=== PATIENT | female | born 1985 | race Caucasian/White ===

== ENCOUNTER 2024-03-25 16:12 | Inpatient (IN) | payer OTHER ==
--- NOTE | 2024-03-25 16:47 | ED ---
General Adult HPI - General Source: patient, RN notes reviewed Mode of arrival: EMS Limitations: no limitations <Alvaro Valdez - Last Filed: 03/25/24 16:45> - General Source: patient, RN notes reviewed Mode of arrival: EMS Limitations: no limitations - History of Present Illness -: unknown Consistency: constant Improves with: none Worsens with: none Associated Symptoms: denies other symptoms Treatments Prior to Arrival: none <Mj Judd - Last Filed: 04/01/24 20:22> - General Stated complaint: Hypertension Time Seen by Provider: 03/25/24 16:45 - History of Present Illness Initial comments: Quick note: 38-year-old female presenting to the ER with a chief complaint hypertension. Patient is coming from [place]. She is checking in as she has been using cradle multiple times a day for the last 8 years. Last dose around 9 AM. She also reports she started to have a heavy chest sensation upon arriving to [place]. No shortness of breath, nausea, vomiting, dizziness or lightheadedness. No other drug or alcohol use. She does report a history of hypertension and is not taking any current medications. (Alvaro Valdez) This is a 38-year-old female to ER for severe anxiety and severely elevated blood pressure (Mj Judd) - Related Data Previous Rx's Medication Instructions Recorded NIFEdipine XL [Procardia XL] 90 mg PO HS #60 tab 03/27/24 carvediloL [Coreg] 6.25 mg PO BID-W/MEALS #120 tab 03/27/24 hydrALAZINE HCL [Apresoline] 50 mg PO QID #100 tab 03/27/24 hydroCHLOROthiazide [Hydrodiuril] 50 mg PO DAILY #60 tab 03/27/24 Allergies Allergy/AdvReac Type Severity Reaction Status Date / Time Penicillins AdvReac Rash/Hives Verified 03/25/24 18:03 Review of Systems ROS Other: All systems not noted in ROS Statement are negative. <Alvaro Valdez - Last Filed: 03/25/24 16:45> ROS Other: All systems not noted in ROS Statement are negative. <Mj Judd - Last Filed: 04/01/24 20:22> ROS Statement: Those systems with pertinent positive or pertinent negative responses have been documented in the HPI. General Exam <Alvaro Valdez - Last Filed: 03/25/24 16:45> General appearance: anxious Head exam: Present: atraumatic, normocephalic, normal inspection Eye exam: Present: normal appearance, PERRL, EOMI. Absent: scleral icterus, conjunctival injection, periorbital swelling ENT exam: Present: normal exam, mucous membranes moist Neck exam: Present: normal inspection. Absent: tenderness, meningismus, lymphadenopathy Respiratory exam: Present: normal lung sounds bilaterally. Absent: respiratory distress, wheezes, rales, rhonchi, stridor Cardiovascular Exam: Present: regular rate, normal rhythm, normal heart sounds. Absent: systolic murmur, diastolic murmur, rubs, gallop, clicks GI/Abdominal exam: Present: soft, normal bowel sounds. Absent: distended, tenderness, guarding, rebound, rigid Extremities exam: Present: normal inspection, full ROM, normal capillary refill. Absent: tenderness, pedal edema, joint swelling, calf tenderness Back exam: Present: normal inspection Neurological exam: Present: alert, oriented X3, CN II-XII intact Psychiatric exam: Present: normal affect, normal mood Skin exam: Present: warm, dry, intact, normal color. Absent: rash <Mj Judd - Last Filed: 04/01/24 20:22> - General Exam Comments Initial Comments: Visual Physical Exam Vital signs reviewed General: Well-appearing, nontoxic, no acute distress. Head: Normocephalic, atraumatic Eyes: PERRLA, EOMI ENT: Airway patent Chest: Nonlabored breathing Skin: No visual rash, normal skin tone Neuro: Alert and oriented 3 Musculoskeletal: No gross abnormalities (Alvaro Valdez) Course <Mj Judd - Last Filed: 04/01/24 20:22> Vital Signs 03/25/24 03/25/24 03/25/24 16:43 18:01 18:31 Temperature 98.7 F Pulse Rate 96 78 76 Pulse Rate [ Veterinary Toxicologist ] Respiratory 20 18 Rate Blood Pressure 239/155 196/116 202/128 Blood Pressure [Right Arm] O2 Sat by Pulse 99 97 98 Oximetry 03/25/24 03/25/24 03/25/24 19:41 20:23 20:41 Temperature 97.7 F Pulse Rate 78 85 84 Pulse Rate [ Veterinary Toxicologist ] Respiratory 20 Rate Blood Pressure 217/142 203/129 204/144 Blood Pressure [Right Arm] O2 Sat by Pulse 98 Oximetry 03/25/24 03/25/24 03/25/24 21:03 21:09 21:17 Temperature 98.1 F Pulse Rate 93 95 Pulse Rate [ Veterinary Toxicologist ] Respiratory 16 16 Rate Blood Pressure 176/94 153/85 146/98 Blood Pressure [Right Arm] O2 Sat by Pulse 96 98 Oximetry 03/25/24 03/25/24 03/25/24 21:26 21:29 21:34 Temperature Pulse Rate 89 89 86 Pulse Rate [ Veterinary Toxicologist ] Respiratory 16 16 16 Rate Blood Pressure 162/95 164/98 172/94 Blood Pressure [Right Arm] O2 Sat by Pulse 96 97 Oximetry 03/25/24 03/25/24 03/25/24 21:56 22:33 22:41 Temperature Pulse Rate 89 78 73 Pulse Rate [ Veterinary Toxicologist ] Respiratory 20 18 16 Rate Blood Pressure 195/120 176/116 166/105 Blood Pressure [Right Arm] O2 Sat by Pulse 97 96 98 Oximetry 03/25/24 03/26/24 03/26/24 23:09 00:10 01:08 Temperature Pulse Rate 71 88 77 Pulse Rate [ Veterinary Toxicologist ] Respiratory 18 20 20 Rate Blood Pressure 163/99 171/116 183/121 Blood Pressure [Right Arm] O2 Sat by Pulse 97 97 100 Oximetry 03/26/24 03/26/24 03/26/24 02:04 02:24 04:00 Temperature Pulse Rate 84 81 94 Pulse Rate [ Veterinary Toxicologist ] Respiratory 22 20 18 Rate Blood Pressure 218/133 181/108 144/102 Blood Pressure [Right Arm] O2 Sat by Pulse 100 94 L 97 Oximetry 03/26/24 03/26/24 03/26/24 04:19 04:54 05:09 Temperature Pulse Rate 83 91 90 Pulse Rate [ Veterinary Toxicologist ] Respiratory 20 18 20 Rate Blood Pressure 143/110 137/96 155/106 Blood Pressure [Right Arm] O2 Sat by Pulse 98 99 99 Oximetry 03/26/24 03/26/24 06:09 06:10 Temperature 98 F Pulse Rate 93 Pulse Rate [ 74 Veterinary Toxicologist ] Respiratory 20 17 Rate Blood Pressure 140/93 140/93 Blood Pressure 140/93 [Right Arm] O2 Sat by Pulse 99 100 Oximetry - Reevaluation(s) Reevaluation #1: 03/25/24 17:14 Medical records reviewed (Mj Judd) Reevaluation #2: Patient still with symptoms here in the ER (Mj Judd) Reevaluation #3: Patient informed of results and questions answered (Mj Judd) Reevaluation #4: Was pt. sent in by a medical professional or institution ([facility], OTHER [employer], urgent care, hospital, or chcf...) When possible be specific @ -no Did you speak to anyone other than the patient for history (EMS, parent, family, police, friend...)? What history was obtained from this source @ -no Did you review nursing and triage notes (agree or disagree)? Why? @ -agree Are old charts reviewed (outside hosp., previous admission, EMS record, old EKG, old radiological studies, urgent care reports/EKG's, [facility] records)? Report findings @ -yes Differential Diagnosis (chest pain, altered mental status, abdominal pain women, abdominal pain men, vaginal bleeding, weakness, fever, dyspnea, syncope, headache, dizziness, GI bleed, back pain, seizure, CVA, palpatations, mental health, musculoskeletal)? @ -prior EKG interpreted by me (3pts min.). @ -yes X-rays interpreted by me (1pt min.). @ -yes negative for acute disease CT interpreted by me (1pt min.). @ -no U/S interpreted by me (1pt. min.). @ -no What testing was considered but not performed or refused? (CT, X-rays, U/S, labs)? Why? @ -none What meds were considered but not given or refused? Why? @ -none Did you discuss the management of the patient with other professionals (professionals i.e. [facility] Martinez, [employer], lab, RT, psych nurse, social work supervisor, policy change clerks supervisor, teacher, parachute/combatant diver officer, case managers)? Give summary @ -no Was smoking cessation discussed for >3mins.? @ -no Was critical care preformed (if so, how long)? @ -yes31 Were there social determinants of health that impacted care today? How? (Homelessness, low income, unemployed, alcoholism, drug addiction, transportation, low edu. Level, literacy, decrease access to med. care, snf, rehab)? @ -none Was there de-escalation of care discussed even if they declined (Discuss DNR or withdrawal of care, Hospice)? DNR status @ -no What co-morbidities impacted this encounter? (DM, HTN, Smoking, COPD, CAD, Cancer, CVA, ARF, Chemo, Hep., AIDS, mental health diagnosis, sleep apnea, morbid obesity)? @ -none Was patient admitted / discharged? Hospital course, mention meds given and route, prescriptions, significant lab abnormalities, going to OR and other pertinent info. @ - 38 female to the ER for evaluation patient will be admitted for severely uncontrolled blood pressure hypertensive emergency with chest pain chest pain anxiety and troponin leak Admitted Undiagnosed new problem with uncertain prognosis? @ -no Drug Therapy requiring intensive monitoring for toxicity (Heparin, Nitro, Insulin, Cardizem)? @ -no Were any procedures done? @ -no Diagnosis/symptom? @ -Hypertensive urgency and chest pain Acute, or Chronic, or Acute on Chronic? @ -Acute Uncomplicated (without systemic symptoms) or Complicated (systemic symptoms)? @ -Complicated Side effects of treatment? @ -no Exacerbation, Progression, or Severe Exacerbation? @ -exacerbation Poses a threat to life or bodily function? How? (Chest pain, [place], [place], pneumonia, PE, COPD, DKA, ARF, appy, cholecystitis, CVA, Diverticulitis, Homicidal, Suicidal, threat to staff... and all critical care pts) @ -yes with chest pain (Mj Judd) Reevaluation #5: Differential Chest Pain: Stable Angina, Unstable Angina, STEMI, NSTEMI Aortic Dissection, Pneumothorax, Musculoskeletal, Esophageal Spasm GERD, Cholecystitis, Pancreatitis, Zoster, this is not meant to be an all-inclusive list. (Mj Judd) - Consultations Consultation #1: Spoke with many physicians who agreed to admit this patient (Mj Judd) EKG Findings - EKG Comments: EKG Findings:: EKG is sinus 85 TX 190 QRS 116 QTc 457 <Mj Judd - Last Filed: 04/01/24 20:22> Medical Decision Making <Alvaro Valdez - Last Filed: 03/25/24 16:45> - Lab Data Result diagrams: 03/27/24 10:03 03/27/24 10:03 - EKG Data -: EKG Interpreted by Me - Radiology Data Radiology results: report reviewed (Chest x-ray is negative for acute disease), image reviewed <Mj Judd - Last Filed: 04/01/24 20:22> - Medical Decision Making I performed the quick note portion of this chart. Electronically signed by Alvaro Valdez PA-C (Alvaro Valdez) 38 female to the ER for evaluation patient will be admitted for severely uncontrolled blood pressure hypertensive emergency with chest pain chest pain anxiety and troponin leak (Mj Judd) - Lab Data Lab Results 03/25/24 03/25/24 03/25/24 Range/Units 17:00 17:00 17:00 WBC 7.7 (3.8-10.6) k/uL RBC 4.62 (3.80-5.40) m/uL Hgb 12.0 (11.4-16.0) gm/dL Hct 37.5 (34.0-46.0) % MCV 81.1 (80.0-100.0) fL MCH 26.1 (25.0-35.0) pg MCHC 32.1 (31.0-37.0) g/dL RDW 17.3 H (11.5-15.5) % Plt Count 335 (150-450) k/uL MPV 8.0 Neutrophils % 61 % Lymphocytes % 32 % Monocytes % 4 % Eosinophils % 1 % Basophils % 0 % Neutrophils # 4.7 (1.3-7.7) k/uL Lymphocytes # 2.5 (1.0-4.8) k/uL Monocytes # 0.3 (0-1.0) k/uL Eosinophils # 0.1 (0-0.7) k/uL Basophils # 0.0 (0-0.2) k/uL Anisocytosis Slight PT 10.5 (10.0-12.5) sec INR 0.9 (<1.2) APTT 23.1 (22.0-30.0) sec Sodium 135 L (137-145) mmol/L Potassium 3.7 (3.5-5.1) mmol/L Chloride 100 (98-107) mmol/L Carbon Dioxide 27 (22-30) mmol/L Anion Gap 8 mmol/L BUN 24 H (7-17) mg/dL Creatinine 0.82 (0.52-1.04) mg/dL Est GFR (CKD-EPI)AfAm >90 (>60 ml/min/1.73 sqM) Est GFR (CKD-EPI)NonAf >90 (>60 ml/min/1.73 sqM) Glucose 94 (74-99) mg/dL Calcium 8.6 (8.4-10.2) mg/dL Magnesium 1.6 (1.6-2.3) mg/dL Total Bilirubin 0.4 (0.2-1.3) mg/dL AST 26 (14-36) U/L ALT 17 (4-34) U/L Alkaline Phosphatase 89 (38-126) U/L Troponin I (0.000-0.034) ng/mL Total Protein 7.0 (6.3-8.2) g/dL Albumin 4.2 (3.5-5.0) g/dL 03/25/24 Range/Units 17:00 WBC (3.8-10.6) k/uL RBC (3.80-5.40) m/uL Hgb (11.4-16.0) gm/dL Hct (34.0-46.0) % MCV (80.0-100.0) fL MCH (25.0-35.0) pg MCHC (31.0-37.0) g/dL RDW (11.5-15.5) % Plt Count (150-450) k/uL MPV Neutrophils % % Lymphocytes % % Monocytes % % Eosinophils % % Basophils % % Neutrophils # (1.3-7.7) k/uL Lymphocytes # (1.0-4.8) k/uL Monocytes # (0-1.0) k/uL Eosinophils # (0-0.7) k/uL Basophils # (0-0.2) k/uL Anisocytosis PT (10.0-12.5) sec INR (<1.2) APTT (22.0-30.0) sec Sodium (137-145) mmol/L Potassium (3.5-5.1) mmol/L Chloride (98-107) mmol/L Carbon Dioxide (22-30) mmol/L Anion Gap mmol/L BUN (7-17) mg/dL Creatinine (0.52-1.04) mg/dL Est GFR (CKD-EPI)AfAm (>60 ml/min/1.73 sqM) Est GFR (CKD-EPI)NonAf (>60 ml/min/1.73 sqM) Glucose (74-99) mg/dL Calcium (8.4-10.2) mg/dL Magnesium (1.6-2.3) mg/dL Total Bilirubin (0.2-1.3) mg/dL AST (14-36) U/L ALT (4-34) U/L Alkaline Phosphatase (38-126) U/L Troponin I 0.017 (0.000-0.034) ng/mL Total Protein (6.3-8.2) g/dL Albumin (3.5-5.0) g/dL Disposition <Alvaro Valdez - Last Filed: 03/25/24 16:45> Is patient prescribed a controlled substance at d/c from ED?: No Time of Disposition: 19:20 <Mj Judd - Last Filed: 04/01/24 20:22> Clinical Impression: Hypertensive emergency, Chest pain, Anxiety Disposition: ADMITTED IP TO THIS HOSP Condition: Stable
[2024-03-25] MEDS: LABETALOL 5 MG/ML VIAL MDV IVP STA ×2 (17:08→21:25)
[2024-03-25 17:20] LABS: Anisocytosis Slight; Basophils % (A) 0 %; Eosinophils # (A) 0.1 k/uL (0-0.7); Eosinophils % (A) 1 %; HCT 37.5 % (34.0-46.0); Lymphocytes # (A) 2.5 k/uL (1.0-4.8); Lymphocytes % (A) 32 %; MCH 26.1 pg (25.0-35.0); MCHC 32.1 g/dL (31.0-37.0); MCV 81.1 fL (80.0-100.0); Monocytes # (A) 0.3 k/uL (0-1.0); Monocytes % (A) 4 %; Neutrophils # (A) 4.7 k/uL (1.3-7.7); Neutrophils % (A) 61 %; Platelet Count 335 k/uL (150-450); RBC 4.62 m/uL (3.80-5.40); RDW 17.3 % (11.5-15.5); WBC 7.7 k/uL (3.8-10.6)
[2024-03-25 17:28] LABS: INR 0.9 (<1.2); Partial Thromboplastin Time 23.1 sec (22.0-30.0); Prothrombin Time 10.5 sec (10.0-12.5)
[2024-03-25 17:34] LABS: ALT 17 U/L (4-34); AST 26 U/L (14-36); African American GFR (CKD) >90 (>60 ml/min/1.73 sqM); Albumin 4.2 g/dL (3.5-5.0); Alkaline Phosphatase 89 U/L (38-126); Anion Gap 8 mmol/L; Blood Urea Nitrogen 24 mg/dL (7-17); Calcium 8.6 mg/dL (8.4-10.2); Carbon Dioxide 27 mmol/L (22-30); Chloride 100 mmol/L (98-107); Glucose 94 mg/dL (74-99); Magnesium 1.6 mg/dL (1.6-2.3); Non-African American GFR(CKD) >90 (>60 ml/min/1.73 sqM); Potassium 3.7 mmol/L (3.5-5.1); Sodium 135 mmol/L (137-145); Total Bilirubin 0.4 mg/dL (0.2-1.3)
--- NOTE | 2024-03-25 17:42 | XR ---
EXAMINATION TYPE: XR chest 2V DATE OF EXAM: 03/25/2024 5:23 PM CLINICAL INDICATION: Female, 38 years old with history of Chest Pain; [facility] COMPARISON: Chest radiographs from 03/25/2024 TECHNIQUE: XR chest 2V Frontal view of the chest. FINDINGS: Lungs/Pleura: There is no evidence of pleural effusion, focal consolidation, or pneumothorax. Pulmonary vascularity: Unremarkable. Heart/mediastinum: Cardiomediastinal silhouette is unremarkable. Musculoskeletal: No acute osseous pathology. IMPRESSION: No acute cardiopulmonary disease/process. [facility] Kamla Gilliam, , 03/25/2024 5:40 PM
[2024-03-25] MEDS: LORazepam 2 MG/ML INJ IV STA ×2 (18:00→22:51)
[2024-03-25] MEDS: cloNIDine 0.3 MG/24HR PATCH TRANSDERM SCH (18:01)
[2024-03-25] MEDS ORDERED: NALOXONE 0.4 MG/ML 1 ML VIAL IV PRN (19:14)
[2024-03-25] MEDS ORDERED: ONDANSETRON 4 MG/2 ML VIAL IVP PRN (19:14)
[2024-03-25] MEDS ORDERED: MORPHINE SULFATE 4 MG/ML SYRINGE IV PRN (19:14)
[2024-03-25] MEDS: SODIUM CHLORIDE 0.9% 1,000 ML IV SCH (19:25)
[2024-03-25 19:54] LABS: Amphetamine Screen,Urine Not Detected (NotDetected); Barbiturate Screen,Urine Not Detected (NotDetected); Benzodiazepines Screen,Urine Detected (NotDetected); Cocaine Screen,Urine Not Detected (NotDetected); Methadone Screen, Urine Not Detected (NotDetected); Opiate Screen,Urine Not Detected (NotDetected); Oxycodone Screen, Urine Not Detected (NotDetected); Phencyclidine Screen,Urine Not Detected (NotDetected); Tricyclic Antidepressant,Urine Not Detected (NotDetected); Urn Cannabinoid Scrn Detected (NotDetected)
[2024-03-25] MEDS: niCARdipine 20 MG in SODIUM CHLORIDE 0.9% 192 ML IV SCH (20:06)
--- NOTE | 2024-03-25 22:02 | P.HPIM ---
History of Present Illness H&P Date: 03/25/24 History of present illness; Bruna Escalante 38-year-old female with hypertension and substance use presents for hypertensive emergency. She states that she was seen at [place] and was found to have hypertension greater than 160 systolic per patient. She also stated to have heavy chest sensation when arriving at [place]. She states she has used kratom multiple times a day for the last 8 years, last use being this morning at 9 AM. Her only stated current complaint is itchiness throughout her body. Patient reports absence of fever, chills, chest pain, palpitations, diaphoresis, dyspnea, cough, nausea, vomiting, diarrhea, abdominal pain, weakness, myalgia, dizziness, headache, vision changes, and dysuria. Initial lab work done in the ER showed WBC 7.7, hemoglobin 12.0, platelets 335, coag studies are WNL, sodium 135, potassium 3.7, bicarb 27, anion gap 8, BUN 24, creatinine 0.82, glucose 94, troponin 0.016, urine toxicology positive for benzodiazepine and marijuana. EKG done in the ER independently interpreted showed heart rate of 85, with ST- elevated in aVR and depression in leads I, II, V5, and V6. Chest x-ray done independently interpreted in the ER showed no acute cardiopulmonary process Patient admitted to internal medicine service for hypertensive emergency. REVIEW OF SYSTEMS: All Systems reviewed, pertinent positives and negatives noted in HPI. All other symptoms are negative. PHYSICAL EXAMINATION: Vitals reviewed GENERAL: Appears somewhat uncomfortable, Well developed, well nourished. HEENT: Pupils are round and equally reacting to light. EOMI. No scleral icterus. No conjunctival pallor. Normocephalic, atraumatic. No pharyngeal erythema. No thyromegaly. CARDIOVASCULAR: S1 and S2 present. No murmurs, rubs, or gallops. PULMONARY: Chest is clear to auscultation, no wheezing or crackles. ABDOMEN: Soft, nontender, nondistended, normoactive bowel sounds. No palpable organomegaly. MUSCULOSKELETAL: No apparent joint swelling and deformities. EXTREMITIES: No apparent cyanosis, clubbing, or pedal edema. NEUROLOGICAL: Gross neurological examination did not reveal any focal deficits. SKIN: No apparent rashes PSYCH: The patient is alert and oriented x3 Labs reviewed Imaging reviewed Assessment and plan Bruna Escalante 38-year-old female with hypertension and substance use presents for hypertensive emergency. # Hypertensive emergency Initial BP 239/155 Given 40 mg labetalol in ER Continue clonidine 0.3 mg patch Continue IV nicardipine 5 mg/h Continue IV NS 75 mL/h Continue ondansetron 4 mg IV push every 8 hour as needed for nausea and vomiting Continue cardiac monitoring N.p.o. for now Monitor BMP, every 6 hours # Abnormal EKG with mild troponin leak - Likely due to ongoing hypertensive emergency - Cardiac monitoring - Cardiology consulted - Patient currently denying chest pain # Substance abuse - Given Ativan 1 mg once - Monitor for withdrawal symptoms F: IV Normal saline 75 cc/hr E: Replete as needed N: N.p.o. E: None DVT ppx: Subq Lovenox Code status: Full code Anticipated discharge place: [place] Anticipated discharge time: 03/27 Monitor vital signs, CBC, BMP Continue telemetry monitoring Continue with symptomatic treatment. Further recommendations as per clinical course of the patient Dictation was produced using [employer] dictation software. Please excuse any grammatical, word or spelling errors. Past Medical History Past Medical History: Hypertension History of Any Multi-Drug Resistant Organisms: None Reported Past Surgical History: Section Additional Past Surgical History / Comment(s): brest reduction Past Psychological History: No Psychological Hx Reported Smoking Status: Current every day smoker, Vaper Past Alcohol Use History: Occasional Past Drug Use History: None Reported Medications and Allergies Home Medications Medication Instructions Recorded Confirmed Type No Known Home Medications 03/25/24 03/25/24 History Allergies Allergy/AdvReac Type Severity Reaction Status Date / Time Penicillins AdvReac Rash/Hives Verified 03/25/24 18:03 Physical Exam Vitals: Vital Signs Temp Pulse Resp BP Pulse Ox 03/25/24 21:34 86 16 172/94 97 03/25/24 21:29 89 16 164/98 03/25/24 21:26 89 16 162/95 96 03/25/24 21:17 95 16 146/98 98 03/25/24 21:09 153/85 03/25/24 21:03 98.1 F 93 16 176/94 96 03/25/24 20:41 84 204/144 03/25/24 20:23 85 203/129 03/25/24 19:41 97.7 F 78 20 217/142 98 03/25/24 18:31 76 18 202/128 98 03/25/24 18:01 78 196/116 97 03/25/24 16:43 98.7 F 96 20 239/155 99 Intake and Output 03/25/24 03/25/24 03/25/24 06:59 14:59 22:59 Intake Total 87.500 Balance 87.500 Intake: Intake, IV Titration 87.500 Amount niCARdipine 20 mg In 87.500 Sodium Chloride 0.9% 192 ml @ 5 MG/HR 50 mls/hr IV .Q4H [facility] Rx#:[id number] Other: Weight 53.524 kg Results CBC & Chem 7: 03/25/24 17:00 03/25/24 17:00 Labs: Abnormal Lab Results - Last 24 Hours (Table) 03/25/24 03/25/24 03/25/24 Range/Units 17:00 17:00 19:21 RDW 17.3 H (11.5-15.5) % Sodium 135 L (137-145) mmol/L BUN 24 H (7-17) mg/dL U Benzodiazepines Scrn Detected H (NotDetected) U Marijuana (THC) Screen Detected H (NotDetected)
[2024-03-25] MEDS: diphenhydrAMINE 50 MG/ML 1 ML VIAL IVP STA (22:51)
[2024-03-26 00:11] LABS: African American GFR (CKD) >90 (>60 ml/min/1.73 sqM); Anion Gap 3 mmol/L; Blood Urea Nitrogen 19 mg/dL (7-17); Calcium 8.4 mg/dL (8.4-10.2); Carbon Dioxide 30 mmol/L (22-30); Chloride 102 mmol/L (98-107); Glucose 84 mg/dL (74-99); Non-African American GFR(CKD) >90 (>60 ml/min/1.73 sqM); Potassium 3.4 mmol/L (3.5-5.1); Sodium 135 mmol/L (137-145)
[2024-03-26] MEDS: LORazepam 2 MG/ML INJ IV STA (03:16)
[2024-03-26] MEDS: POTASSIUM CHLORIDE ER 20 MEQ TAB.ER PO STA (03:26)
[2024-03-26] MEDS: hydroCHLOROthiazide 25 MG TAB PO SCH (03:26)
[2024-03-26] MEDS: amLODIPine 10 MG TAB PO STA (03:26)
[2024-03-26 06:06] LABS: Glucose,Whole Blood 126 mg/dL (70-110)
--- NOTE | 2024-03-26 06:13 | P.CNPUL ---
History of Present Illness Consult date: 03/26/24 Requesting physician: Kelli Fajardo Reason for consult: other (Hypertensive urgency) Chief complaint: High blood pressure at [facility] History of present illness: Patient is a 38-year-old female sent in from [facility] re[facility] facility for high blood pressure. Patient apparently uses Kratom multiple times per day for the last 8 years. Originally, started taking the substance to get off pain pills. Her last dose was reportedly yesterday around 0900. Currently, she is a poor historian. Does not offer much reliable information for HPI, but will occasionally respond appropriately to direct questioning. I did speak to Dr. Fajardo in regard to this patient. She was found to be severely hypertensive in the emergency department, initial blood pressure 239/155 mmHg. Reportedly complaining of chest pain on arrival. Patient was given multiple doses of labetalol, as well as, started on oral antihypertensive medications (e.g., amlodipine, hydrochlorothiazide, and clonidine patch). Despite this, requiring IV antihypertensives. I am currently evaluating the patient in the emergency department. She is currently on Cardene infusion at 3 mg/hr. She is diaphoretic, restless, and itching all over. Also, becomes agitated with repeat questioning. She has received multiple doses of Ativan, total of 5 mg. Patient denies any headaches, vision changes, seizures. Also, denies chest pain, shortness of breath, palpitations, peripheral edema. Denies any other drug use; however, urine toxicology screen positive for benzodiazepines and marijuana. States she drinks alcohol on average 2 times per week, but not daily. Denies history of high blood pressure or prescribed antihypertensive medications on an outpatient basis. Current vital signs include a heart rate of 94 bpm, blood pressure 137/96 mmHg, tachypneic, on room air, SpO2 98%, afebrile. CBC and BMP unremarkable. LFTs unremarkable. Serial troponin 0.017, 0.018, and 0.026 respectively. EKG: Normal sinus rhythm, rate 85 bpm, T wave inversion in leads I, aVL, V5, V6 along with minimal ST depressions. Awaiting bed on the intensive care unit. Review of Systems Constitutional: Denies fever Cardiovascular: Denies chest pain, Denies leg edema, Denies palpitations, Denies shortness of breath Respiratory: Denies dyspnea Gastrointestinal: Denies abdominal pain, Denies diarrhea, Denies nausea, Denies vomiting Genitourinary: Denies dysuria Musculoskeletal: Denies limitation of motion Integumentary: Denies rash Neurological: Reports confusion, Reports tremors, Denies headaches, Denies seizures, Denies visual changes Psychiatric: Reports anxiety, Reports irritability, Denies hallucinations Past Medical History Past Medical History: Hypertension History of Any Multi-Drug Resistant Organisms: None Reported Past Surgical History: Section Additional Past Surgical History / Comment(s): brest reduction Past Psychological History: No Psychological Hx Reported Smoking Status: Current every day smoker, Vaper Past Alcohol Use History: Occasional Past Drug Use History: None Reported Medications and Allergies Home Medications Medication Instructions Recorded Confirmed Type No Known Home Medications 03/25/24 03/25/24 History Allergies Allergy/AdvReac Type Severity Reaction Status Date / Time Penicillins AdvReac Rash/Hives Verified 03/25/24 18:03 Physical Exam Vitals: Vital Signs Temp Pulse Resp BP Pulse Ox 03/26/24 05:09 90 20 155/106 99 03/26/24 04:54 91 18 137/96 99 03/26/24 04:19 83 20 143/110 98 03/26/24 04:00 94 18 144/102 97 03/26/24 02:24 81 20 181/108 94 L 03/26/24 02:04 84 22 218/133 100 03/26/24 01:08 77 20 183/121 100 03/26/24 00:10 88 20 171/116 97 03/25/24 23:09 71 18 163/99 97 03/25/24 22:41 73 16 166/105 98 03/25/24 22:33 78 18 176/116 96 03/25/24 21:56 89 20 195/120 97 03/25/24 21:34 86 16 172/94 97 03/25/24 21:29 89 16 164/98 03/25/24 21:26 89 16 162/95 96 03/25/24 21:17 95 16 146/98 98 03/25/24 21:09 153/85 03/25/24 21:03 98.1 F 93 16 176/94 96 03/25/24 20:41 84 204/144 03/25/24 20:23 85 203/129 03/25/24 19:41 97.7 F 78 20 217/142 98 03/25/24 18:31 76 18 202/128 98 03/25/24 18:01 78 196/116 97 03/25/24 16:43 98.7 F 96 20 239/155 99 Intake and Output 03/25/24 03/25/24 03/26/24 14:59 22:59 06:59 Intake Total 89.167 70 Balance 89.167 70 Intake: Intake, IV Titration 89.167 70 Amount niCARdipine 20 mg In 89.167 70 Sodium Chloride 0.9% 192 ml @ 5 MG/HR 50 mls/hr IV .Q4H [facility] Rx#:[id number] Other: Weight 53.524 kg GENERAL EXAM: Restless, 38-year-old female, intermittently agitated. Trying to get up to the bathroom. HEAD: Normocephalic and atraumatic EYES: Normal reaction of pupils, equal size. NOSE: Clear with pink turbinates. THROAT: No erythema or exudates. NECK: No masses, no JVD. CHEST: No chest wall deformity. LUNGS: Equal air entry with no crackles, wheeze, rhonchi or dullness. On room air. No conversational dyspnea or accessory muscle use.. CVS: S1 and S2 normal with no audible murmur, regular rhythm. No extra heart sounds ABDOMEN: No hepatosplenomegaly, active bowel sounds, no guarding or rigidity. SPINE: No scoliosis or deformity SKIN: No rashes CENTRAL NERVOUS SYSTEM: Currently oriented to self only. No focal deficits, tone is normal in all 4 extremities. EXTREMITIES: There is no peripheral edema, clubbing, or cyanosis. Peripheral pulses are intact. Results - Laboratory Findings CBC and BMP: 03/25/24 17:00 03/25/24 23:28 PT/INR, D-dimer PT 10.5 sec (10.0-12.5) 03/25/24 17:00 INR 0.9 (<1.2) 03/25/24 17:00 Abnormal lab findings: Abnormal Labs 03/25/24 03/25/24 03/25/24 17:00 17:00 19:21 RDW 17.3 H Sodium 135 L Potassium BUN 24 H U Benzodiazepines Scrn Detected H U Marijuana (THC) Screen Detected H 03/25/24 23:28 RDW Sodium 135 L Potassium 3.4 L BUN 19 H U Benzodiazepines Scrn U Marijuana (THC) Screen - Diagnostic Findings Chest x-ray: image reviewed Assessment and Plan Assessment: Hypertensive urgency, currently on Cardene infusion. Altered mental status, likely secondary to withdrawal symptoms or possibly hypertensive encephalopathy Polysubstance abuse, admits to using kratom multiple times per day; urine toxicology screen positive for marijuana and benzodiazepines. Plan: Patient's medications, labs, chest x-ray reviewed Continue IV Cardene for now; if continued difficulty in blood pressure management, consider switching to Cleviprex infusion Adjunct oral antihypertensives already started Gradual reductions toward a normal BP can be implemented over the next 24 to 48 hours Obtain repeat ECG As needed Ativan ordered for suspected withdrawal symptoms GI prophylaxis: Protonix DVT prophylaxis: Lovenox Cardiology consulted Patient is going to be admitted to the intensive care unit once bed available I have personally seen and examined the patient, performed the documentation and the assessment and plan as written. Number of minutes spent on the visit:20 Time with Patient: Greater than 30
[2024-03-26] MEDS: CLEVIDIPINE BUTYRATE 25 MG in EMPTY BAG 1 BAG IV SCH (06:54)
[2024-03-26] MEDS: METOPROLOL TARTRATE 25 MG TAB PO SCH (09:34)
[2024-03-26] MEDS: ENOXAPARIN 40 MG/0.4 ML SYRINGE SQ SCH (09:36)
[2024-03-26] MEDS: PANTOPRAZOLE 40 MG TABLET PO SCH (09:36)
--- NOTE | 2024-03-26 09:45 | P.CRDCN ---
History of Present Illness Consult date: 03/26/24 Consult reason: hypertension History of present illness: The patient is a 38-year-old female who is currently in [place] for withdrawal. Patient was found to have elevated blood pressure readings greater than 160 systolic therefore she was sent to the emergency room. On arrival blood pressures were greater than 200 systolic. She admits to using kratom multiple times per day and denies any other drug use. Urine toxicology positive for benzodiazepines and marijuana. DIAGNOSTICS: EKG shows sinus mechanism with LVH Chest x-ray shows no acute cardiopulmonary process Lab data: WBC 7.7, hemoglobin 12.0, hematocrit 37.5, platelet 335, sodium 135, potassium 3.4, BUN 19, creatinine 0.79, magnesium 1.6, AST 26, ALT 17, troponins negative x 3, urine toxicology positive for benzodiazepines and marijuana REVIEW OF SYSTEMS: Limited review of systems. Patient is sleeping and refuses to answer to questioning. PHYSICAL EXAMINATION: This is a 30-year-old female in no apparent distress at the time of my examination. HEENT: Head is atraumatic, normocephalic. Pupils are equal, round. Mucous membranes of the mouth are moist. Neck is supple. There is no jugular venous distention. No carotid bruit is heard. CHEST EXAMINATION: Lungs are clear to auscultation. No chest wall tenderness is noted on palpation or with deep breathing. HEART EXAMINATION: Heart regular rate and rhythm. S1, S2 heard. No murmurs, gallops or rub. ABDOMEN: Soft, nontender. Bowel sounds are heard. No organomegaly noted. EXTREMITIES: 2+ peripheral pulses with no evidence of peripheral edema and no calf tenderness noted. NEUROLOGIC EXAMINATION: Patient is sleeping. FINAL ASSESSMENT AND PLAN: Hypertensive crisis Altered mental status Polysubstance abuse PLAN: Switch amlodipine to Procardia Wean Cleviprex drip as tolerated Further recommendations be based upon clinical course I am dictating on behalf of Dr Nael Rodrigez's history/physical and assessmen t/plan. Past Medical History Past Medical History: Hypertension History of Any Multi-Drug Resistant Organisms: None Reported Past Surgical History: Section Additional Past Surgical History / Comment(s): brest reduction Past Psychological History: No Psychological Hx Reported Smoking Status: Current every day smoker, Vaper Past Alcohol Use History: Occasional Past Drug Use History: None Reported Medications and Allergies Home Medications Medication Instructions Recorded Confirmed Type No Known Home Medications 03/25/24 03/25/24 History Allergies Allergy/AdvReac Type Severity Reaction Status Date / Time Penicillins AdvReac Rash/Hives Verified 03/25/24 18:03 Physical Exam Vitals: Vital Signs Temp Pulse Pulse Resp BP BP Pulse Ox 03/26/24 09:30 93 26 H 148/94 98 03/26/24 09:15 19 149/102 99 03/26/24 09:00 82 19 146/97 96 03/26/24 08:45 88 21 135/95 98 03/26/24 08:30 86 23 149/95 98 03/26/24 08:15 86 18 149/99 100 03/26/24 08:00 98.6 F 80 20 161/120 98 03/26/24 07:45 90 20 161/113 03/26/24 07:30 21 153/117 03/26/24 07:20 18 153/117 03/26/24 07:10 86 23 159/116 03/26/24 07:00 83 9 L 162/107 03/26/24 06:50 83 20 162/107 03/26/24 06:40 83 23 171/119 03/26/24 06:30 78 20 180/112 03/26/24 06:20 81 15 140/93 100 03/26/24 06:10 98 F 74 17 140/93 140/93 100 03/26/24 06:09 93 20 140/93 99 03/26/24 05:09 90 20 155/106 99 03/26/24 04:54 91 18 137/96 99 03/26/24 04:19 83 20 143/110 98 03/26/24 04:00 94 18 144/102 97 03/26/24 02:24 81 20 181/108 94 L 03/26/24 02:04 84 22 218/133 100 03/26/24 01:08 77 20 183/121 100 03/26/24 00:10 88 20 171/116 97 03/25/24 23:09 71 18 163/99 97 03/25/24 22:41 73 16 166/105 98 03/25/24 22:33 78 18 176/116 96 03/25/24 21:56 89 20 195/120 97 03/25/24 21:34 86 16 172/94 97 03/25/24 21:29 89 16 164/98 03/25/24 21:26 89 16 162/95 96 03/25/24 21:17 95 16 146/98 98 03/25/24 21:09 153/85 03/25/24 21:03 98.1 F 93 16 176/94 96 03/25/24 20:41 84 204/144 03/25/24 20:23 85 203/129 03/25/24 19:41 97.7 F 78 20 217/142 98 03/25/24 18:31 76 18 202/128 98 03/25/24 18:01 78 196/116 97 03/25/24 16:43 98.7 F 96 20 239/155 99 Intake and Output 03/25/24 03/26/24 03/26/24 22:59 06:59 14:59 Intake Total 89.167 70 152.3 Output Total 1200 Balance 89.167 70 -1047.7 Intake: IV 150 Sodium Chloride 0.9% 1, 150 000 ml @ 75 mls/hr IV . [id number] [facility] Rx#:[id number] Intake, IV Titration 89.167 70 2.3 Amount Clevidipine Butyrate 25 2.3 mg In Empty Bag 1 bag @ 1 MG/HR 2 mls/hr IV .Q24H [facility] Rx#:[id number] niCARdipine 20 mg In 89.167 70 Sodium Chloride 0.9% 192 ml @ 5 MG/HR 50 mls/hr IV .Q4H [facility] Rx#:[id number] Output: Urine 1200 Other: Weight 53.524 kg 53.524 kg Results 03/25/24 17:00 03/25/24 23:28 Cardiac Enzymes 03/25/24 03/25/24 03/25/24 Range/Units 17:00 17:00 20:43 AST 26 (14-36) U/L Troponin I 0.017 0.018 (0.000-0.034) ng/mL 03/25/24 Range/Units 23:28 AST (14-36) U/L Troponin I 0.026 (0.000-0.034) ng/mL Coagulation 03/25/24 Range/Units 17:00 PT 10.5 (10.0-12.5) sec APTT 23.1 (22.0-30.0) sec CBC 03/25/24 Range/Units 17:00 WBC 7.7 (3.8-10.6) k/uL RBC 4.62 (3.80-5.40) m/uL Hgb 12.0 (11.4-16.0) gm/dL Hct 37.5 (34.0-46.0) % Plt Count 335 (150-450) k/uL Comprehensive Metabolic Panel 03/25/24 03/25/24 Range/Units 17:00 23:28 Sodium 135 L 135 L (137-145) mmol/L Potassium 3.7 3.4 L (3.5-5.1) mmol/L Chloride 100 102 (98-107) mmol/L Carbon Dioxide 27 30 (22-30) mmol/L BUN 24 H 19 H (7-17) mg/dL Creatinine 0.82 0.79 (0.52-1.04) mg/dL Glucose 94 84 (74-99) mg/dL Calcium 8.6 8.4 (8.4-10.2) mg/dL AST 26 (14-36) U/L ALT 17 (4-34) U/L Alkaline Phosphatase 89 (38-126) U/L Total Protein 7.0 (6.3-8.2) g/dL Albumin 4.2 (3.5-5.0) g/dL Current Medications Generic Name Dose Route Start Last Admin Trade Name Freq PRN Reason Stop Dose Admin Amlodipine Besylate 10 mg 03/26/24 21:00 Amlodipine 10 Mg Tab PO HS [facility] Enoxaparin Sodium 40 mg 03/26/24 09:00 Enoxaparin 40 Mg/0.4 Ml Syringe SQ DAILY [facility] Hydrochlorothiazide 50 mg 03/26/24 02:46 03/26/24 03:26 Hydrochlorothiazide 25 Mg Tab PO 50 mg HS [facility] Administration Clevidipine 25 mg/ IV Solution 50 mls @ 2 mls/hr 03/26/24 06:45 03/26/24 07:45 IV 3 mg/hr .Q24H [facility] 6 mls/hr Titration Protocol 1 MG/HR Lorazepam 1 mg 03/26/24 05:53 Lorazepam 2 Mg/Ml Inj IV Q6HR PRN Anxiety Metoprolol Tartrate 25 mg 03/26/24 09:15 Metoprolol Tartrate 25 Mg Tab PO BID [facility] Naloxone HCl 0.2 mg 03/25/24 19:14 Naloxone 0.4 Mg/Ml 1 Ml Vial IV Q2M PRN Opioid Reversal Ondansetron HCl 4 mg 03/25/24 19:14 Ondansetron 4 Mg/2 Ml Vial IVP Q8HR PRN Nausea And Vomiting Pantoprazole Sodium 40 mg 03/26/24 07:30 Pantoprazole 40 Mg Tablet PO AC-BRKFST [facility] Intake and Output 03/25/24 03/26/24 03/26/24 22:59 06:59 14:59 Intake Total 89.167 70 152.3 Output Total 1200 Balance 89.167 70 -1047.7 Intake: IV 150 Sodium Chloride 0.9% 1, 150 000 ml @ 75 mls/hr IV . [id number] [facility] Rx#:[id number] Intake, IV Titration 89.167 70 2.3 Amount Clevidipine Butyrate 25 2.3 mg In Empty Bag 1 bag @ 1 MG/HR 2 mls/hr IV .Q24H [facility] Rx#:[id number] niCARdipine 20 mg In 89.167 70 Sodium Chloride 0.9% 192 ml @ 5 MG/HR 50 mls/hr IV .Q4H [facility] Rx#:[id number] Output: Urine 1200 Other: Weight 53.524 kg 53.524 kg 03/25/24 17:00 03/25/24 23:28
[2024-03-26 10:43] LABS: Basophils # (A) 0.02 X 10*3/uL (0.00-0.10); Basophils % (A) 0.3 %; Eosinophils # (A) 0.19 X 10*3/uL (0.04-0.35); Eosinophils % (A) 2.6 %; HCT 39.9 % (37.2-46.3); HGB 12.7 g/dL (12.0-15.0); Lymphocytes # (A) 2.45 X 10*3/uL (0.90-5.00); Lymphocytes % (A) 32.9 %; MCH 25.7 pg (27.0-32.0); MCHC 31.8 g/dL (32.0-37.0); MCV 80.6 FL (80.0-97.0); Mean Platelet Volume 10.6 FL (9.5-12.2); Monocytes % (A) 5.4 %; NRBC Per 100 WBC 0 X 10*3/uL (0.00-0.01); Neutrophils # (A) 4.37 X 10*3/uL (1.80-7.70); Neutrophils % (A) 58.5 %; Platelet Count 303 X 10*3/uL (140-440); RBC 4.95 X 10*6/uL (4.10-5.20); RDW 17.9 % (11.5-14.5); WBC 7.45 X 10*3/uL (4.50-10.00)
[2024-03-26 10:52] LABS: ALT 17 U/L (8-44); AST 24 U/L (13-35); Albumin 4.3 g/dL (3.8-4.9); Albumin/Globulin Ratio 1.59 Ratio (1.60-3.17); Alkaline Phosphatase 74 U/L (41-126); BUN/Creat Ratio 16.57 Ratio (12.00-20.00); Blood Urea Nitrogen 11.6 mg/dL (9.0-27.0); Calcium 8.6 mg/dL (8.7-10.3); Carbon Dioxide 27.1 mmol/L (21.6-31.8); Chloride 97 mmol/L (96-109); Globulin 2.7 g/dL (1.6-3.3); Glucose 102 mg/dL (70-110); Magnesium 1.7 mg/dL (1.5-2.4); Phosphorus 2.5 mg/dL (2.4-5.1); Potassium 3.6 mmol/L (3.5-5.5); Sodium 135 mmol/L (135-145); Total Bilirubin 0.2 mg/dL (0.3-1.2)
[2024-03-26 11:48] LABS: African American GFR (CKD) >90 (>60 ml/min/1.73 sqM); Anion Gap 8 mmol/L; Blood Urea Nitrogen 9 mg/dL (7-17); Calcium 9.2 mg/dL (8.4-10.2); Carbon Dioxide 27 mmol/L (22-30); Chloride 99 mmol/L (98-107); Glucose 133 mg/dL (74-99); Non-African American GFR(CKD) >90 (>60 ml/min/1.73 sqM); Potassium 3.7 mmol/L (3.5-5.1); Sodium 134 mmol/L (137-145)
--- NOTE | 2024-03-26 12:02 | P.PN ---
Subjective Progress Note Date: 03/26/24 Subjective: Patient seen and examined at the bedside. Patient is not complaining of chest discomfort, acute vision changes, shortness of breath. Currently her blood pressure is well-controlled. All Systems reviewed and pertinent positives and negatives noted in HPI, all other symptoms are negative Objective: Vital signs reviewed. General: non toxic, no distress, appears at stated age, normal weight Derm: no unusual rashes/lesions, warm Head: atraumatic, normocephalic, symmetric Eyes: EOMI, no lid lag, anicteric sclera, pupils equal round reactive to light ENT: Nose and ears atraumatic Neck: No cervical lymphadenopathy, trachea midline, supple Mouth: no lip lesion, mucus membranes moist Cardiovascular: S1S2 reg, no murmur, positive dorsalis pedis pulse bilateral, no edema Lungs: CTA bilateral, no rhonchi, no rales, no accessory muscle use Abdominal: soft, nontender to palpation, no guarding Ext: muscle strength 5 out of 5 in all 4 extremities grossly, no gross muscle atrophy, no contractures, Neuro: CN II-XI grossly intact, no gross focal neuro deficits Psych: Alert, oriented, appropriate affect Data reviewed today: Labs: WBC 7.45, hemoglobin 12.7, MCV 80.6, platelet count 303, sodium 135, potassium 3.6, chloride 97, bicarb 27.1, creatinine 0.7, BUN 11.6, calcium 8.6, AST 24, ALT 17 Images: EKG independently interpreted, shows sinus rhythm with normal R wave progression. Significant T wave inversions in inferior and lateral leads, significant ST depression in lateral leads, some nonspecific ST elevations in anterior leads Assessment and plan Bruna Escalante 38-year-old female with hypertension and substance use presents for hypertensive emergency. # Hypertensive emergency Blood pressure is improving with target goal less than 160/100 over next 24 hours Discontinued clonidine 0.3 mg patch Patient is currently on Cleviprex drip running at 3 mg/h; wean off on Cleviprex as tolerated Cardiology note reviewed, amlodipine is switched to nifedipine XL 90 mg p.o. at bedtime -Also started on metoprolol tartrate 25 twice daily per pulmonology Continue ondansetron 4 mg IV push every 8 hour as needed for nausea and vomiting Continue cardiac monitoring Diet advanced to regular diet Patient can be downgraded to regular floor after discontinuation of Cleviprex and blood pressure at target # Chest pain #Abnormal EKG Likely due to ongoing hypertensive emergency Cardiac monitoring Cardiology following Patient currently denying chest pain #Substance abuse - Given Ativan 1 mg once - Monitor for withdrawal symptoms #Hypokalemia, resolved Status post potassium chloride 40 mEq F: None E: Replete as needed N: Regular diet E: None DVT ppx: Subq Lovenox Code status: Full code Anticipated discharge place: [place] Anticipated discharge time: Pending clinical course I have seen and evaluated the patient today. Discussed with the resident and agree with the residents finding and plan as documented in the resident's note. Changes highlighted in blue font. Objective - Vital Signs Vital signs: Vital Signs Temp 98.6 F 03/26/24 08:00 Pulse 83 03/26/24 10:45 Resp 19 03/26/24 10:45 BP 152/105 03/26/24 10:45 Pulse Ox 98 03/26/24 10:45 FiO2 Intake & Output 03/25/24 03/26/24 03/26/24 18:59 06:59 18:59 Intake Total 159.167 152.3 Output Total 1200 Balance 159.167 -1047.7 Weight 53.524 kg 53.524 kg Intake: IV 150 Sodium Chloride 0.9% 1, 150 000 ml @ 75 mls/hr IV . [id number] [facility] Rx#:[id number] Intake, IV Titration 159.167 2.3 Amount Clevidipine Butyrate 25 2.3 mg In Empty Bag 1 bag @ 1 MG/HR 2 mls/hr IV .Q24H [facility] Rx#:[id number] niCARdipine 20 mg In 159.167 Sodium Chloride 0.9% 192 ml @ 5 MG/HR 50 mls/hr IV .Q4H [facility] Rx#:[id number] Output: Urine 1200 - Labs CBC & Chem 7: 03/26/24 06:08 03/26/24 11:20 Labs: Abnormal Lab Results - Last 24 Hours (Table) 03/25/24 03/25/24 03/25/24 Range/Units 17:00 17:00 19:21 MCH (27.0-32.0) pg MCHC (32.0-37.0) g/dL RDW 17.3 H (11.5-15.5) % Sodium 135 L (137-145) mmol/L Potassium (3.5-5.1) mmol/L BUN 24 H (7-17) mg/dL Glucose (74-99) mg/dL POC Glucose (mg/dL) (70-110) mg/dL Calcium (8.7-10.3) mg/dL Total Bilirubin (0.3-1.2) mg/dL Albumin/Globulin Ratio (1.60-3.17) Ratio U Benzodiazepines Scrn Detected H (NotDetected) U Marijuana (THC) Screen Detected H (NotDetected) 03/25/24 03/26/24 03/26/24 Range/Units 23:28 06:05 06:08 MCH 25.7 L (27.0-32.0) pg MCHC 31.8 L (32.0-37.0) g/dL RDW 17.9 H (11.5-15.5) % Sodium 135 L (137-145) mmol/L Potassium 3.4 L (3.5-5.1) mmol/L BUN 19 H (7-17) mg/dL Glucose (74-99) mg/dL POC Glucose (mg/dL) 126 H (70-110) mg/dL Calcium (8.7-10.3) mg/dL Total Bilirubin (0.3-1.2) mg/dL Albumin/Globulin Ratio (1.60-3.17) Ratio U Benzodiazepines Scrn (NotDetected) U Marijuana (THC) Screen (NotDetected) 03/26/24 03/26/24 Range/Units 06:08 11:20 MCH (27.0-32.0) pg MCHC (32.0-37.0) g/dL RDW (11.5-15.5) % Sodium 134 L (137-145) mmol/L Potassium (3.5-5.1) mmol/L BUN (7-17) mg/dL Glucose 133 H (74-99) mg/dL POC Glucose (mg/dL) (70-110) mg/dL Calcium 8.6 L (8.7-10.3) mg/dL Total Bilirubin 0.2 L (0.3-1.2) mg/dL Albumin/Globulin Ratio 1.59 L (1.60-3.17) Ratio U Benzodiazepines Scrn (NotDetected) U Marijuana (THC) Screen (NotDetected)
[2024-03-26] MEDS ORDERED: Magnesium Replacement Protocol 1 EACH MISC MISCELLANE PRN (12:35)
[2024-03-26] MEDS ORDERED: Potassium Replacement Protocol 1 EACH MISC MISCELLANE PRN (12:37)
[2024-03-26] MEDS: POTASSIUM CHLORIDE ER 20 MEQ TAB.ER PO SCH (12:45)
[2024-03-26] MEDS: MAGNESIUM SULFATE-D5W PMX 1 GM in DEXTROSE/WATER 1 100ML.BAG IVPB SCH (12:45)
[2024-03-26] MEDS: NICOTINE 14MG/24HR PATCH TRANSDERM SCH (12:45)
[2024-03-26] MEDS: LORazepam 2 MG/ML INJ IV PRN (13:06)
[2024-03-26 16:41] LABS: African American GFR (CKD) 85 (>60 ml/min/1.73 sqM); Anion Gap 6 mmol/L; Blood Urea Nitrogen 22 mg/dL (7-17); Calcium 9.1 mg/dL (8.4-10.2); Carbon Dioxide 30 mmol/L (22-30); Chloride 96 mmol/L (98-107); Glucose 103 mg/dL (74-99); Non-African American GFR(CKD) 73 (>60 ml/min/1.73 sqM); Potassium 4.4 mmol/L (3.5-5.1); Sodium 132 mmol/L (137-145)
[2024-03-26] MEDS: hydrALAZINE HCL 50 MG TAB PO SCH (18:38)
[2024-03-26] MEDS: NIFEdipine XL 90 MG TAB.ER.24 PO SCH (20:17)
[2024-03-26] MEDS ORDERED: amLODIPine 10 MG TAB PO SCH (21:00)
[2024-03-27 04:54] VITALS: RESP 16
[2024-03-27 08:41] VITALS: BP 132/78; PULSE 95; TEMP 97.7
--- NOTE | 2024-03-27 08:46 | CDI ---
Documentation Clarification Form Date: 03/27/2024 07:55:27 AM From: Viri Guadalupe RN CCDS Phone: [phone] Admit Date: 03/25/2024 07:16:00 PM Patient Name: Bruna Escalante Visit Number: [id number] Discharge Date: ATTENTION: The Clinical Documentation Specialists (CDI) and [facility] Coding Staff appreciate your assistance in clarifying documentation. Please respond to the clarification below the line at the bottom and electronically sign. The CDI & [facility] Coding staff will review the response and follow-up if needed. Please note: Queries are made part of the Legal Health Record. If you have any questions, please contact the author of this message via ITS. Doctor: Hernando Crisostomo Conflicting documentation has been found in the medical record. As attending physician, please provide clarification. Hypertensive Emergency, [place], 03/25 Hypertensive Crisis, Cardiology, 03/26 History/Risk Factors: 38 year old female present to ED from [place] for Hypertension greater than 160 systolic per patient with heavy chest sensation. Medical History: Has used kratom multiple times a day for the last 8 years, last dose 9am this am (03/25/2024), Substance abuse and HTN. 03/25, . Clinical Indicators: EKG, 03/25: HR 85, with ST elevation in a VR and depression in leads, l, ll, V5 and V6. CXR, 03/25: No acute cardiopulmonary process. Labs, 03/25: NA 135, BUN 24, CR 0.82, Troponin I 0.017 and 0.026, Toxicology: Benzodiazepines and THC Detected. VSS, 03/25 16:43 B/P 239/155; HR 96; Temp 98.7F Oral; RR 20; SpO2 99% ra. 03/25 19/:41: B/P 217/142, HR 78 Treatment: 03/25 Labetalol 20mg IVP x 1; 03/25 Clonidine Hcl Transderm Q7D; 03/25 Ativan 1mg IV x 1; 03/25 03/26 Nicardipine HCl 20mg 200mls @ 50mls/hr IV; 03/25 Labetalol 20mg IV x 1; 03/25 Ativan 2mg IV x 1; 03/26 Ativan 2mg IV x 1; 03/26 Norvasc 10mg PO x 1; Hydrodiuril 50mg HS x 1; 03/26 Kdur 20 40meq PO x 1; 03/26 03/26 Clevidipine 25mg 5mls @ 2mls/hr Q24H; 03/26 Lopressor 25mg PO BID [facility]; 03/26 Magnesium sulfate IVPB x 2 Bags; 03/26 Kdur 20 20meq PO x 1; 03/26 Apresoline 50mg PO QID [facility]; 03/26 Procardia Xl 90mg PO HS [facility]; 03/27 Hydrodiuril 50mg PO Daily Please clarify which diagnosis is most appropriate: [ x ] Hypertensive Emergency [ ] Hypertensive Crisis [ ] Other (please specify) [ ] Unable to determine Clinical Definitions: Hypertensive Urgency SBP > 180 or DBP > 120 without symptoms or with headache Hypertensive Emergency SBP > 180 or DBP > 120 with chest pain or end organ damage Hypertensive encephalopathy, retinal hemorrhages, papilledema, LOBITO Hypertensive Crisis SBP > 180 or DBP > 120 Stroke, Heart Attack, Heart Failure, Kidney Failure (Template Last Revised: August 2020) LATASHAD
--- NOTE | 2024-03-27 09:10 | CDI ---
Documentation Clarification Form Date: 03/27/2024 08:47:11 AM From: Viri Guadalupe RN CCDS Phone: [phone] Admit Date: 03/25/2024 07:16:00 PM Patient Name: Bruna Escalante Visit Number: [id number] Discharge Date: ATTENTION: The Clinical Documentation Specialists (CDI) and [facility] Coding Staff appreciate your assistance in clarifying documentation. Please respond to the clarification below the line at the bottom and electronically sign. The CDI & [facility] Coding staff will review the response and follow-up if needed. Please note: Queries are made part of the Legal Health Record. If you have any questions, please contact the author of this message via ITS. Provider: Erasmo Richey Encephalopathy is documented 03/25, Pulmonary Consult. Additional clarification regarding the type of encephalopathy is requested. History/Risk Factors: 38 year old female present to ED from [place] for Hypertension greater than 160 systolic per patient with heavy chest sensation. Medical History: Has used kratom multiple times a day for the last 8 years, last dose 9am this am (03/25/2024), Substance abuse and HTN. 03/25, HP. Clinical Indicators: 03/26, Pulmonary consult: Altered mental status, likely secondary to withdrawal symptoms or possibly hypertensive encephalopathy. VSS, 03/25 16:43 B/P 239/155; HR 96; Temp 98.7F Oral; RR 20; SpO2 99% ra. 03/25 19/:41: B/P 217/142, HR 78 Labs, 03/25: NA 135, BUN 24, CR 0.82, Troponin I 0.017 and 0.026, Toxicology: Benzodiazepines and THC Detected. Treatment: : Fall precautions, Aspiration precautions, Neuro /22 Labetalol 20mg IVP x 1; 03/25 Clonidine Hcl Transderm Q7D; 03/25 Ativan 1mg IV x 1; 03/25 03/26 Nicardipine HCl 20mg 200mls @ 50mls/hr IV; 03/25 Labetalol 20mg IV x 1; 03/25 Ativan 2mg IV x 1; 03/26 Ativan 2mg IV x 1; 03/26 Norvasc 10mg PO x 1; Hydrodiuril 50mg HS x 1; 03/26 Kdur 20 40meq PO x 1; 03/26 03/26 Clevidipine 25mg 5mls @ 2mls/hr Q24H; 03/26 Lopressor 25mg PO BID NGUYEN; 03/26 Magnesium sulfate IVPB x 2 Bags; 03/26 Kdur 20 20meq PO x 1; 03/26 Apresoline 50mg PO QID NGUYEN; 03/26 Procardia Xl 90mg PO HS NGUYEN Please clarify the type of encephalopathy, if known: [ ] Hypertensive Encephalopathy [ ] Metabolic Encephalopathy [ ] Hypertensive Encephalopathy and Metabolic Encephalopathy [ ] Other, please specify [ x] Unable to determine (Template Last Revised: August 2020) MTDD
[2024-03-27] MEDS: carvediloL 6.25 MG TAB PO SCH (09:39)
[2024-03-27 11:23] LABS: African American GFR (CKD) >90 (>60 ml/min/1.73 sqM); Anion Gap 6 mmol/L; Blood Urea Nitrogen 22 mg/dL (7-17); Calcium 9.2 mg/dL (8.4-10.2); Carbon Dioxide 29 mmol/L (22-30); Chloride 98 mmol/L (98-107); Glucose 78 mg/dL (74-99); Magnesium 1.8 mg/dL (1.6-2.3); Non-African American GFR(CKD) >90 (>60 ml/min/1.73 sqM); Potassium 4.5 mmol/L (3.5-5.1); Sodium 133 mmol/L (137-145)
[2024-03-27 11:42] LABS: Anisocytosis Slight; Basophils % (A) 0 %; Eosinophils % (A) 1 %; HCT 42.6 % (34.0-46.0); HGB 13.8 gm/dL (11.4-16.0); Lymphocytes # (A) 1.3 k/uL (1.0-4.8); Lymphocytes % (A) 20 %; MCHC 32.4 g/dL (31.0-37.0); MCV 80.4 fL (80.0-100.0); Mean Platelet Volume 8.3; Microcytosis Slight; Monocytes # (A) 0.3 k/uL (0-1.0); Monocytes % (A) 4 %; Neutrophils % (A) 74 %; Platelet Count 338 k/uL (150-450); RDW 17.2 % (11.5-15.5); WBC 6.7 k/uL (3.8-10.6)
--- NOTE | 2024-03-27 14:00 | P.PN ---
Subjective Progress Note Date: 03/27/24 Consult reason: hypertension History of present illness: The patient is a 38-year-old female who is currently in [place] for withdrawal. Patient was found to have elevated blood pressure readings greater than 160 systolic therefore she was sent to the emergency room. On arrival blood pressures were greater than 200 systolic. She admits to using kratom multiple times per day and denies any other drug use. Urine toxicology positive for benzodiazepines and marijuana. DIAGNOSTICS: EKG shows sinus mechanism with LVH Chest x-ray shows no acute cardiopulmonary process Lab data: WBC 7.7, hemoglobin 12.0, hematocrit 37.5, platelet 335, sodium 135, potassium 3.4, BUN 19, creatinine 0.79, magnesium 1.6, AST 26, ALT 17, troponins negative x 3, urine toxicology positive for benzodiazepines and marijuana 03/27 Patient is seen today on the cardiac stepdown unit, transferred from ICU. Patient's blood pressure readings are much improved. 139/76, heart rate is in the 70s and pulse ox 98% on room air. Patient denies headache, shortness of breath, chest pain. She is anxious to be discharged back to [facility]. PHYSICAL EXAMINATION: This is a 30-year-old female in no apparent distress at the time of my examination. HEENT: Head is atraumatic, normocephalic. Pupils are equal, round. Mucous membranes of the mouth are moist. Neck is supple. There is no jugular venous distention. No carotid bruit is heard. CHEST EXAMINATION: Lungs are clear to auscultation. No chest wall tenderness is noted on palpation or with deep breathing. HEART EXAMINATION: Heart regular rate and rhythm. S1, S2 heard. No murmurs, gallops or rub. ABDOMEN: Soft, nontender. Bowel sounds are heard. No organomegaly noted. EXTREMITIES: 2+ peripheral pulses with no evidence of peripheral edema and no calf tenderness noted. NEUROLOGIC EXAMINATION: Patient is sleeping. FINAL ASSESSMENT AND PLAN: Hypertensive crisis Altered mental status Polysubstance abuse PLAN: Continue patient on current cardiac medications Transition beta-lawanda to Coreg 6.25 mg twice daily Patient is cleared for discharge from cardiology and will follow-up in the office in 1 week. I am dictating on behalf of Dr Nael Rodrigez's history/physical and assessment/plan. Objective - Vital Signs Vital signs: Vital Signs Temp 97.7 F 03/27/24 08:00 Pulse 95 03/27/24 08:00 Resp 16 03/27/24 08:00 BP 132/78 03/27/24 08:00 Pulse Ox 95 03/27/24 08:00 FiO2 Intake & Output 03/26/24 03/27/24 03/27/24 18:59 06:59 18:59 Intake Total 905.3 240 Output Total 2200 Balance -1294.7 240 Weight 53.2 kg Intake: IV 390 Magnesium Sulfate-D5w Pmx 200 1 gm In Dextrose/Water 1 100ml.bag @ 100 mls/hr IVPB Q1H NGUYEN Rx#: [id number] Sodium Chloride 0.9% 1, 190 000 ml @ 75 mls/hr IV . [id number] NGUYEN Rx#:[id number] Intake, IV Titration 25.3 Amount Clevidipine Butyrate 25 25.3 mg In Empty Bag 1 bag @ 1 MG/HR 2 mls/hr IV .Q24H NGUYEN Rx#:[id number] Oral 250 240 Blood Product 240 Output: Urine 2200 Other: Voiding Method Toilet # Voids 2 1 # Bowel Movements 2 - Labs CBC & Chem 7: 03/27/24 10:03 03/27/24 10:03 Labs: Abnormal Lab Results - Last 24 Hours (Table) 03/26/24 03/27/24 03/27/24 Range/Units 15:44 10:03 10:03 RDW 17.2 H (11.5-15.5) % Sodium 132 L 133 L (137-145) mmol/L Chloride 96 L (98-107) mmol/L BUN 22 H 22 H (7-17) mg/dL Glucose 103 H (74-99) mg/dL
--- NOTE | 2024-03-27 14:05 | P.PN ---
Subjective Progress Note Date: 03/27/24 Principal diagnosis: Hypertensive urgency and metabolic encephalopathy possible hypertensive encephalopathy. Patient is a 38-year-old female sent in from [facility] facility for high blood pressure. Patient apparently uses Kratom multiple times per day for the last 8 years. Originally, started taking the substance to get off pain pills. Her last dose was reportedly yesterday around 0900. Currently, she is a poor historian. Does not offer much reliable information for HPI, but will occasionally respond appropriately to direct questioning. I did speak to Dr. Meenakshi bell in regard to this patient. She was found to be severely hypertensive in the emergency department, initial blood pressure 239/155 mmHg. Reportedly complaining of chest pain on arrival. Patient was given multiple doses of labetalol, as well as, started on oral antihypertensive medications (e.g., amlodipine, hydrochlorothiazide, and clonidine patch). Despite this, requiring IV antihypertensives. I am currently evaluating the patient in the emergency department. She is currently on Cardene infusion at 3 mg/hr. She is diaphoretic, restless, and itching all over. Also, becomes agitated with repeat questioning. She has received multiple doses of Ativan, total of 5 mg. Patient denies any headaches, vision changes, seizures. Also, denies chest pain, shortness of breath, palpitations, peripheral edema. Denies any other drug use; however, urine toxicology screen positive for benzodiazepines and marijuana. States she drinks alcohol on average 2 times per week, but not daily. Denies history of high blood pressure or prescribed antihypertensive medications on an outpatient basis. Current vital signs include a heart rate of 94 bpm, blood pressure 137/96 mmHg, tachypneic, on room air, SpO2 98%, afebrile. CBC and BMP unremarkable. LFTs unremarkable. Serial troponin 0.017, 0.018, and 0.026 respectively. EKG: Normal sinus rhythm, rate 85 bpm, T wave inversion in leads I, aVL, V5, V6 along with minimal ST depressions. Awaiting bed on the intensive care unit. Patient was seen today on 03/27/2024, patient is doing well, asymptomatic, her blood pressure is under control, patient will likely be discharged back to [facility] today. No active pulmonary symptoms no cardiac symptoms patient denies any headache blurred vision or dizziness. Labs today are unremarkable including relatively normal CBC and normal basic metabolic profile Objective - Vital Signs Vital signs: Vital Signs Temp 97.7 F 03/27/24 08:00 Pulse 95 03/27/24 08:00 Resp 16 03/27/24 08:00 BP 132/78 03/27/24 08:00 Pulse Ox 95 03/27/24 08:00 FiO2 Intake & Output 03/26/24 03/27/24 03/27/24 18:59 06:59 18:59 Intake Total 905.3 240 Output Total 2200 Balance -1294.7 240 Weight 53.2 kg Intake: IV 390 Magnesium Sulfate-D5w Pmx 200 1 gm In Dextrose/Water 1 100ml.bag @ 100 mls/hr IVPB Q1H NGUYEN Rx#: [id number] Sodium Chloride 0.9% 1, 190 000 ml @ 75 mls/hr IV . [id number] NGUYEN Rx#:[id number] Intake, IV Titration 25.3 Amount Clevidipine Butyrate 25 25.3 mg In Empty Bag 1 bag @ 1 MG/HR 2 mls/hr IV .Q24H NGUYEN Rx#:[id number] Oral 250 240 Blood Product 240 Output: Urine 2200 Other: Voiding Method Toilet # Voids 2 1 # Bowel Movements 2 - Exam GENERAL EXAM: Revealed 38-year-old female in no distress, on room air HEAD: Normocephalic and atraumatic EYES: Normal reaction of pupils, equal size. NOSE: Clear with pink turbinates. THROAT: No erythema or exudates. NECK: No masses, no JVD. CHEST: No chest wall deformity. LUNGS: Clear throughout no crackles rhonchi or wheezes CVS: S1 and S2 normal with no audible murmur, regular rhythm. No extra heart sounds ABDOMEN: No hepatosplenomegaly, active bowel sounds, no guarding or rigidity. He SKIN: No rashes CENTRAL NERVOUS SYSTEM: Alert oriented x 3 no gross focal deficit EXTREMITIES: No clubbing edema or cyanosis - Labs CBC & Chem 7: 03/27/24 10:03 03/27/24 10:03 Labs: Abnormal Lab Results - Last 24 Hours (Table) 03/26/24 03/27/24 03/27/24 Range/Units 15:44 10:03 10:03 RDW 17.2 H (11.5-15.5) % Sodium 132 L 133 L (137-145) mmol/L Chloride 96 L (98-107) mmol/L BUN 22 H 22 H (7-17) mg/dL Glucose 103 H (74-99) mg/dL Assessment and Plan Assessment: Impression: Hypertensive urgency Encephalopathy likely metabolic in nature however hypertensive encephalopathy is not entirely ruled out,/possible hypertensive encephalopathy History of polysubstance abuse Recommendation: Agree with the present treatment plan Agree with discharge planning Patient will be discharged back to [facility]. Will follow as needed Time with Patient: Less than 30
--- NOTE | 2024-03-27 14:26 | P.DS ---
Providers Date of admission: 03/25/24 19:16 Expected date of discharge: 03/27/24 Attending physician: Javid Pacheco MD Consults: 03/25/24 19:14 Consult Physician Routine Consulting Provider: Purnima Childers Consult Reason/Comments: cp,HTN Do you want consulting provider notified?: Yes 03/26/24 04:25 Consult Physician Urgent Consulting Provider: Vicki Jacobo Consult Reason/Comments: htn emergency Do you want consulting provider notified?: Yes 03/26/24 05:13 Consult Physician Urgent Consulting Provider: Alejandro Olson Consult Reason/Comments: chest pain Do you want consulting provider notified?: Yes Primary care physician: Stated None Hospital Course: Discharge Diagnosis: # Hypertensive emergency # Chest pain with EKG changes #Substance abuse #Hypokalemia Hospital Course: Bruna Escalante 38-year-old female with hypertension and substance use presents for hypertensive emergency. She states that she was seen at [place] and was found to have hypertension greater than 160 systolic per patient. She also stated to have heavy chest sensation when arriving at [place]. She states she has used kratom multiple times a day for the last 8 years. r only stated current complaint is itchiness throughout her body. Initial lab work done in the ER showed WBC 7.7, hemoglobin 12.0, platelets 335, coag studies are WNL, sodium 135, potassium 3.7, bicarb 27, anion gap 8, BUN 24, creatinine 0.82, glucose 94, troponin 0.016, urine toxicology positive for benzodiazepine and marijuana. EKG done in the ER independently interpreted showed heart rate of 85, with ST-elevated in aVR and depression in leads I, II, V5, and V6. Chest x- ray done independently interpreted in the ER showed no acute cardiopulmonary process. Patient transferred to ICU for further management of hypertension crisis. Cardiology was consulted. Patient was downgraded to regular floor after her blood pressure stabilized. Patient is medically optimized to be discharged. She is not complaining of any chest pain, shortness of breath. Discharge instruction: Patient is advised to follow-up with PCP and data software engineer within 1 to 2 weeks Patient is advised to continue with nifedipine 90 mg p.o. at bedtime, hydralazine 50 mg p.o. twice daily, carvedilol 6.25 mg p.o. twice daily and hydrochlorothiazide 50 mg p.o. daily Patient provided with handout/instruction for hypertensive crisis. Vital signs reviewed. Stable Gen: in no apparent distress, resting comfortably in bed Eyes: PERRL, no scleral injection or icterus HENT: normocephalic, atraumatic, good hearing acuity, moist mucous membranes Neck: full range of motion Resp: CTAB, no rales, rhonchi, or wheezes CVS: normal S1 and S2, no murmurs, rubs or gallops, no edema GI: soft, NTTP, ND, no hepatosplenomegaly : no suprapubic tenderness, no CVAT, robledo catheter is not present MSK: no clubbing, no cyanosis, no noted contractures of extremities Skin: no noted rashes, petechiae; temperature of skin is appropriate Neuro: moving all extremities without signs of weakness, CN II-XII intact Psych: cooperative, euthymic mood, insight and judgment intact A total of 36 minutes of time were spent preparing this complex discharge summary. Patient was discharged on 03/27/2024 at 1048. I have seen and evaluated the patient today. Discussed with the resident and agree with the residents finding and plan as documented in the resident's note. Changes highlighted in blue font. Patient Condition at Discharge: Stable Plan - Discharge Summary Discharge Rx Participant: Yes New Discharge Prescriptions: New NIFEdipine XL [Procardia XL] 90 mg PO HS #60 tab hydrALAZINE HCL [Apresoline] 50 mg PO QID #100 tab carvediloL [Coreg] 6.25 mg PO BID-W/MEALS #120 tab hydroCHLOROthiazide [Hydrodiuril] 50 mg PO DAILY #60 tab Discharge Medication List NIFEdipine XL [Procardia XL] 90 mg PO HS #60 tab 03/27/24 [Rx] carvediloL [Coreg] 6.25 mg PO BID-W/MEALS #120 tab 03/27/24 [Rx] hydrALAZINE HCL [Apresoline] 50 mg PO QID #100 tab 03/27/24 [Rx] hydroCHLOROthiazide [Hydrodiuril] 50 mg PO DAILY #60 tab 03/27/24 [Rx] Follow up Appointment(s)/Referral(s): Raheel Graf MD [Medical Doctor] - 04/03/24 11:15 am Rick Oscar MD [REFERRING] - 04/16/24 1:30 pm Patient Instructions/Handouts: Hypertensive Crisis (DC) Activity/Diet/Wound Care/Special Instructions: Please follow-up with your PCP and data software engineer within 1 to 2 weeks. Please measure you BP 3 times daily. Please hold your blood pressure medication if your systolic blood pressure drops below 90 and/or you start to feel symptoms adjust dizziness, lightheaded. If any of these symptoms occur please reach out to your PCP or seek urgent care. Discharge Disposition: OTHER INSTITUTION NOT DEFINED
--- NOTE | 2024-04-01 10:19 | CDI ---
Documentation Clarification Form Date: 03/27/2024 08:47:00 AM From: Viri Guadalupe RN CCDS Phone: [phone] Admit Date: 03/25/2024 07:16:00 PM Patient Name: Bruna Escalante Visit Number: [id number] Discharge Date: 03/27/2024 12:38:00 PM ATTENTION: The Clinical Documentation Specialists (CDI) and [facility] Coding Staff appreciate your assistance in clarifying documentation. Please respond to the clarification below the line at the bottom and electronically sign. The CDI & [facility] Coding staff will review the response and follow-up if needed. Please note: Queries are made part of the Legal Health Record. If you have any questions, please contact the author of this message via ITS. Doctor: Hernando Crisostomo MD Encephalopathy is documented 03/25, Pulmonary Consult. Additional clarification regarding the type of encephalopathy is requested. History/Risk Factors: 38 year old female present to ED from [place] for Hypertension greater than 160 systolic per patient with heavy chest sensation. Medical History: Has used kratom multiple times a day for the last 8 years, last dose 9am this am (03/25/2024), Substance abuse and HTN. 03/25, HP. Clinical Indicators: 03/26, Pulmonary consult: Altered mental status, likely secondary to withdrawal symptoms or possibly hypertensive encephalopathy. VSS, 03/25 16:43 B/P 239/155; HR 96; Temp 98.7F Oral; RR 20; SpO2 99% ra. 03/25 19/:41: B/P 217/142, HR 78 Labs, 03/25: NA 135, BUN 24, CR 0.82, Troponin I 0.017 and 0.026, Toxicology: Benzodiazepines and THC Detected. Treatment: : Fall precautions, Aspiration precautions, Neuro [id number] Labetalol 20mg IVP x 1; 03/25 Clonidine Hcl Transderm Q7D; 03/25 Ativan 1mg IV x 1; 03/25 03/26 Nicardipine HCl 20mg 200mls @ 50mls/hr IV; 03/25 Labetalol 20mg IV x 1; 03/25 Ativan 2mg IV x 1; 03/26 Ativan 2mg IV x 1; 03/26 Norvasc 10mg PO x 1; Hydrodiuril 50mg HS x 1; 03/26 Kdur 20 40meq PO x 1; 03/26 03/26 Clevidipine 25mg 5mls @ 2mls/hr Q24H; 03/26 Lopressor 25mg PO BID NGUYEN; 03/26 Magnesium sulfate IVPB x 2 Bags; 03/26 Kdur 20 20meq PO x 1; 03/26 Apresoline 50mg PO QID NGUYEN; 03/26 Procardia Xl 90mg PO HS NGUYEN Please clarify the type of encephalopathy, if known: [ ] Hypertensive Encephalopathy [ x ] Metabolic Encephalopathy [ ] Hypertensive Encephalopathy and Metabolic Encephalopathy [ ] Other, please specify [ ] Unable to determine (Template Last Revised: August 2020) MTDD
== END 2024-03-27 12:38 | disposition other institution (70) | DRG 199 ==
LOC: EC 16:12 → 6NMEDSUR 19:15 → OBSVTOIN 19:16 → 2SICU 21:20 → 3SCARD 03-26 21:15
PROVIDERS: ADMIT Internal Medicine; ATTEND Internal Medicine
DX: I16.1 Hypertensive emergency (principal); F19.139 Other psychoactive substance abuse with withdrawal, unspecified; G93.41 Metabolic encephalopathy; I10 Essential (primary) hypertension; R79.89 Other specified abnormal findings of blood chemistry; R45.1 Restlessness and agitation; F17.290 Nicotine dependence, other tobacco product, uncomplicated; E87.6 Hypokalemia; F41.9 Anxiety disorder, unspecified; Z79.899 Other long term (current) drug therapy; Z28.310 Unvaccinated for COVID-19; Z88.0 Allergy status to penicillin
CPT/HCPCS: 36415; 71046; 80048; 80053; 80306; 81025; 83735; 84100; 84484; 85025; 85610; 85730; 93005; 96365; 96366; 96375; 96376; 99285